=== PATIENT | female | born 1970 | race Caucasian/White ===

== ENCOUNTER 2024-03-20 17:23 | Emergency (ER) | payer OTHER, SELFPAY ==
[2024-03-20] VITALS (12 sets, daily range): BP systolic 136–155; BP diastolic 73–82; PULSE 99–113; RESP 16–20; TEMP 36.9; O2SAT 94–97; BMI 28.9
--- NOTE | 2024-03-20 18:55 | ED_ITS ---
HPI - Abdominal Pain General Time Seen by Provider: 18:55 Date Seen: 03/20/24 Chief Complaint: Abdominal Pain Stated Complaint: Lower R abdominal pain Time Seen by Provider: 03/20/24 18:54 Source: patient, RN notes reviewed and japanese interpreter Mode of arrival: ambulatory Limitations: no limitations History of Present Illness HPI narrative: This 54-year-old female is seen with the aid of the japanese interpreter but she answers many of the questions with out the japanese interpreter, do believe the japanese interpreter is necessary as there are times when she does need the clarification. This patient is coming in with severe right lower quadrant pain today. She states it has been intermittent for about 2 months. She states she currently has her menstrual cycle, is bleeding a little bit. She denies any history of abdominal surgeries. She is requesting pain medicine right away, states it is painful. She had a normal bowel movement yesterday, denies any ch kirsty in bowel habits such as blood in stool or diarrhea. She told nursing staff that she has maybe had some urinary frequency but denied any major urinary issues to me. There is no family history of kidney stones but there has been relatives with gallbladder surgery for gallstones. She has had no fevers with this. There was never any nausea with it. She has never been , tells me that she still having regular menstrual cycles. Due to the pain right now there is some slight nausea but baseline she denies any chronic nausea, no change in appetite. Related Data Previous Rx's ?Medication ?Instructions ?Recorded hydrocodone 5 mg-acetaminophen 325 1 tab PO Q4-6H PRN pain #10 tabs 03/20/24 mg tablet Allergies Allergy/AdvReac Type Severity Reaction Status Date / Time No Known Drug Allergies Allergy Verified 03/21/24 15:14 Review of Systems Status of ROS Reports: 6 or more systems reviewed and unremarkable except as noted in History and below Exam Const: Vital Signs, click to edit/add: Vital Signs - 24 hr 03/20/24 18:17 03/20/24 20:27 03/20/24 20:30 Temperature 98.4 F Pulse Rate 110 H 113 H Pulse Rate [Pulse Oximeter] 99 Respiratory Rate 20 Blood Pressure Blood Pressure [Ri ght Upper Arm] 155/82 H Pulse Oximetry 97 97 97 Oxygen Delivery Me thod Room Air 03/20/24 20:45 03/20/24 20:55 03/20/24 21:00 Temperature Pulse Rate 107 H 108 H 106 H Pulse Rate [Pulse Oximeter] Respiratory Rate Blood Pressure 141/76 H Blood Pressure [Ri ght Upper Arm] Pulse Oximetry 97 96 94 Oxygen Delivery Me thod 03/20/24 21:01 03/20/24 21:02 03/20/24 22:15 Temperature Pulse Rate 107 H 108 H 110 H Pulse Rate [Pulse Oximeter] Respiratory Rate Blood Pressure 136/73 139/73 Blood Pressure [Ri ght Upper Arm] Pulse Oximetry 96 97 96 Oxygen Delivery Me thod 03/20/24 22:16 03/20/24 22:30 03/20/24 22:45 Temperature Pulse Rate 108 H 108 H 108 H Pulse Rate [Pulse Oximeter] Respiratory Rate 16 Blood Pressure Blood Pressure [Ri ght Upper Arm] Pulse Oximetry 97 96 96 Oxygen Delivery Me thod This 54-year-old female is alert, interactive, no apparent distress but does seem uncomfortable. Is hanging onto her right lower quadrant. Sclera clear, conjugate gaze, speech is normal. Lungs are clear, good air entry, no wheezing or crackles. CV regular rate and rhythm, no murmur, normal S1-S2, no S3-S4. Abdomen is soft nondistended she has very definite right lower quadrant tenderness and I do feel like there is a palpable mass there, she does have guarding does seem to to be very tender but would not say there is rebound. Documenting provider has reviewed patient's vital signs: yes Course Course ED Course: Reviewed with this patient that she will get an IV, have already told the nursing staff that she is having significant pain. There could be an ovarian mass causing ovarian torsion, she does not think that there is any chance for and will confirm negative test. Doubtful that this is urinary pathology but kidney stones could be possibility, will get full complement of labs including urinalysis. I am starting with a pelvic ultrasound as I am concerned at her age that this could be pelvic pathology. Reevaluation(s) Time of Reevaluation #1: 19:57 Reevaluation #1: Have reviewed that her white count is normal hemoglobin is low at 5.5 but her MCV is quite low at 66. This could be a hemoglobinopathy or more chronic iron deficiency. Have ordered a peripheral smear, ferritin, iron, her tick count and TIBC. Also asked lab to do a type and screen. The loan auditor did call over and states that patient is passing lot of clots, uterus appears abnormal, probable uterine mass, needs to evaluate ovarian areas closer. Time of Reevaluation #2: 22:52 Reevaluation #2: Patient is feeling much better, pain is improved. We discussed 1 subsequent dose of 15 mg IV Toradol prior to pulling her IV and discharged home. With her pain being significantly improved, do not think I have clinical indication to send her to an advance facility for inpatient workup. She has had no further bleeding, has not had to change any subsequent pads will being here and does contend that her bleeding has not been significantly [facility] Her ferritin came back at 4.7 and her iron is low at 23, this certainly is iron deficiency anemia and with her MCV being 66 likely represents some chronicity to this. We have reviewed that there appears to be a mass in the right ovary visualized on the ultrasound, ultrasound is better for visualizing pelvic structures. There is also a mass from the right anterior uterus which could be fibroid versus malignancy. We did discuss that she needs further follow-up with Gyne Oncology as my recommendation. She really is not symptomatic from anemic standpoint. Will recommend outpatient follow-up and having her scheduled for IV iron transfusion. She plans on follow-up with [facility]. Consultations Consultation #1: Conferred with Dr. Lopes. We did order TXA 1 g IV given her blood clots and bleeding during ultrasound. On further questioning when she was back from ultrasound, patient states she did just change her pad but there is only 1 small spot on her current pad. She relays that she had a lengthy. For 2 months but not heavy. She does not endorse heavy bleeding prior to now. She does not have ongoing bleeding at this moment. Type and screen was ordered but we are going to hold on any transfusion, do think she likely has chronic anemia and will watch for active ongoing bleeding. Her pain is maybe just a little better at this time. I still do have concern with her clinical examination of intermittent torsion and have reviewed this with Dr. Lopes. This patient would certainly not be within this scope of our expertise cm and certainly would be indicated to go to advanced facility where Gyne Onc can perhaps see her. We are going to do a CT of her abdomen and pelvis just to ensure that there is no other etiology, we are not missing anything else but really do doubt that there is appendicitis. Did do tumor markers for ovarian cancer as directed by Dr. Lopes. Time: 20:29 Vital Signs Vital signs: Initial Vital Signs Temperature 98.4 F 03/20/24 18:17 Temperature Source Temporal Artery Scan 03/20/24 18:17 Pulse Rate 99 03/20/24 18:17 Respiratory Rate 20 03/20/24 18:17 Blood Pressure 155/82 H 03/20/24 18:17 Blood Pressure Mean 106 H 03/20/24 18:17 Blood Pressure Position Sitting 03/20/24 18:17 Pulse Oximetry 97 03/20/24 18:17 Oxygen Delivery Method Room Air 03/20/24 18:17 Vital Signs Temperature 98.4 F 03/20/24 18:17 Pulse Rate 99 03/20/24 18:17 Respiratory Rate 20 03/20/24 18:17 Blood Pressure 155/82 H 03/20/24 18:17 Pulse Oximetry 97 03/20/24 18:17 Oxygen Delivery Method Room Air 03/20/24 18:17 Temperature 98.4 F 03/20/24 18:17 Pulse Rate 108 H 03/20/24 22:45 Respiratory Rate 16 03/20/24 22:16 Blood Pressure 139/73 03/20/24 22:15 Pulse Oximetry 96 03/20/24 22:45 Oxygen Delivery Method Room Air 03/20/24 18:17 Medications Administered Medications: Discontinued Medications Generic Name Dose Route Start Last Admin Trade Name Freq PRN Reason Stop Dose Admin Tranexamic Acid 1,000 mg/ 110 mls @ 440 mls/hr 03/20/24 20:16 03/20/24 20:53 Sodium Chloride IVPB 03/20/24 20:17 Infused ONCE ONE Infusion Ketorolac Tromethamine 15 mg 03/20/24 22:52 03/20/24 22:58 Ketorolac 15 Mg/Ml Inj IVP 03/20/24 22:53 15 mg ONCE ONE Administration Morphine Sulfate 4 mg 03/20/24 19:06 03/20/24 19:33 Morphine 4 Mg/Ml Inj IVP 03/20/24 19:07 4 mg ONCE ONE Administration Ondansetron HCl 4 mg 03/20/24 19:06 03/20/24 19:30 Ondansetron 2 Mg/Ml Inj IVP 03/20/24 19:07 4 mg ONCE ONE Administration MDM - Abdominal Pain Lab Data Attestation: I reviewed the patient's lab results. Labs: Lab Results 03/20/24 03/20/24 03/20/24 Range/Units 19:15 19:51 20:08 WBC 5.14 (4.50-11.00) K/uL RBC 3.09 L (4.00-5.20) m/uL Hgb 5.5 L* (12.0-16.0) gm/dL Hct 20.4 L (33.0-51.0) % MCV 66 L (80-100) fL MCH 18 L (26-34) pg MCHC 27 L (32-36) gm/dL RDW Coeff of Mando 18.5 H (11.5-15.5) % Plt Count 243 (140-440) K/uL Neut % (Auto) 71.6 (42.0-72.0) % Lymph % (Auto) 17.7 L (20-44) % [place] % (Auto) 9.9 (0.0-11.0) % Eos % (Auto) 0.2 (0.0-7.0) % Baso % (Auto) 0.4 (0.0-3.0) % Neut # (Auto) 3.68 (1.7-7.0) K/uL Lymph # (Auto) 0.90 (0.90-2.90) K/uL [place] # (Auto) 0.50 (0.00-0.90) K/UL Eos # (Auto) 0.01 (0.00-0.50) K/uL Baso # (Auto) 0.02 (0.00-0.30) K/uL Abs Immat Gran (auto) 0.01 (0.00-0.30) K/uL Imm/Tot Granulo (auto) 0.2 % Diff Slide Review Acceptable Review (Acceptable) Absolute Retic 0.08 (0.03-0.08) # Percent Retic 2.8 H (0.5-2.0) % Immature Retic Fraction 18.7 H (3.0-15.9) % Retic Hgb Equivalent 11.9 L (29.0-35.0) pg Sodium 137 (135-149) mmol/L Potassium 3.8 (3.6-5.1) mmol/L Chloride 104 (96-114) mmol/L Carbon Dioxide 24 (20-32) mmol/L Anion Gap 9 (7-15) mEq/L BUN 18 (7-30) mg/dL Creatinine 0.6 (0.5-1.5) mg/dL Estimated Creat Clear 110.64 Estimated GFR 108 ml/min Glucose 123 H (60-115) mg/dL Lactate 0.6 (0.5-1.9) mmol/L Calcium 9.0 (8.4-10.6) mg/dL Iron 23 L (37-170) ug/dL TIBC 436 (265-497) ug/dL % Saturation 5 L (20-50) % Ferritin 4.7 L (11.1-264.0) ng/mL Total Bilirubin 0.5 (0.1-1.5) mg/dL AST 15 (12-35) U/L ALT 10 (4-35) U/L Alkaline Phosphatase 69 (40-150) U/L C-Reactive Protein 5.9 H (0.5-1.0) mg/dL Total Protein 8.1 (6.0-8.3) g/dL Albumin 4.4 (3.3-5.0) g/dL CEA (off-site) <0.6 (<=3.8) ng/mL CA 19-9 Antigen 9 (<=35) U/mL CA 125 (LORRI) 39 H (<=38) U/mL HCG, Qual (Negative) Urine Color (Yellow) Urine Appearance (Clear) Urine pH (5.0-8.5) Ur Specific [place] (1.000-1.030) Urine Protein (Negative) Urine Glucose (UA) (Negative) Urine Ketones (Negative) Urine Blood (Negative) Urine Nitrite (Negative) Urine Bilirubin (Negative) Urine Urobilinogen (0.2-1.0) Ur Leukocyte Esterase (Negative) Urine RBC (0-2) Urine WBC (0-5) Ur Squamous Epith Cells (None-Few) Urine Bacteria (None) Urine HCG, Qual (Negative) Lab Acknowledgement Test Added Blood Type A Positive Antibody Screen NEGATIVE Crossmatch (AHG) See Detail 10/10/24 10/10/24 10/10/24 Range/Units 20:28 21:20 Unknown WBC (4.50-11.00) K/uL RBC (4.00-5.20) m/uL Hgb (12.0-16.0) gm/dL Hct (33.0-51.0) % MCV (80-100) fL MCH (26-34) pg MCHC (32-36) gm/dL RDW Coeff of Mando (11.5-15.5) % Plt Count (140-440) K/uL Neut % (Auto) (42.0-72.0) % Lymph % (Auto) (20-44) % [place] % (Auto) (0.0-11.0) % Eos % (Auto) (0.0-7.0) % Baso % (Auto) (0.0-3.0) % Neut # (Auto) (1.7-7.0) K/uL Lymph # (Auto) (0.90-2.90) K/uL [place] # (Auto) (0.00-0.90) K/UL Eos # (Auto) (0.00-0.50) K/uL Baso # (Auto) (0.00-0.30) K/uL Abs Immat Gran (auto) (0.00-0.30) K/uL Imm/Tot Granulo (auto) % Diff Slide Review (Acceptable) Absolute Retic (0.03-0.08) # Percent Retic (0.5-2.0) % Immature Retic Fraction (3.0-15.9) % Retic Hgb Equivalent (29.0-35.0) pg Sodium (135-149) mmol/L Potassium (3.6-5.1) mmol/L Chloride (96-114) mmol/L Carbon Dioxide (20-32) mmol/L Anion Gap (7-15) mEq/L BUN (7-30) mg/dL Creatinine (0.5-1.5) mg/dL Estimated Creat Clear Estimated GFR ml/min Glucose (60-115) mg/dL Lactate (0.5-1.9) mmol/L Calcium (8.4-10.6) mg/dL Iron (37-170) ug/dL TIBC (265-497) ug/dL % Saturation (20-50) % Ferritin (11.1-264.0) ng/mL Total Bilirubin (0.1-1.5) mg/dL AST (12-35) U/L ALT (4-35) U/L Alkaline Phosphatase (40-150) U/L C-Reactive Protein (0.5-1.0) mg/dL Total Protein (6.0-8.3) g/dL Albumin (3.3-5.0) g/dL CEA (off-site) (<=3.8) ng/mL CA 19-9 Antigen (<=35) U/mL CA 125 (LORRI) (<=38) U/mL HCG, Qual Negative (Negative) Urine Color Yellow (Yellow) Urine Appearance Clear (Clear) Urine pH 6.0 (5.0-8.5) Ur Specific [place] 1.020 (1.000-1.030) Urine Protein 1+ A (Negative) Urine Glucose (UA) Negative (Negative) Urine Ketones 1+ A (Negative) Urine Blood 3+ A (Negative) Urine Nitrite Negative (Negative) Urine Bilirubin Negative (Negative) Urine Urobilinogen 1.0 (0.2-1.0) Ur Leukocyte Esterase Negative (Negative) Urine RBC 10-25 A (0-2) Urine WBC 2-5 (0-5) Ur Squamous Epith Cells None (None-Few) Urine Bacteria Few A (None) Urine HCG, Qual Negative (Negative) Lab Acknowledgement Test Added Blood Type Antibody Screen Crossmatch (AHG) Imaging Data US pelvis: Attestation: I have reviewed the pertinent imaging results. My impression: Did visualize images with Dr. Lopes. Radiologist's impression: Patient: TU MARTINEZ Facility:?[facility] Patient ID:?[id number] Site Patient ID:?[id number]. Site :?[id number] Study:?US-Pelvis -03/20/2024 8:12:34 PM Ordering Physician:?Sharad Cohen Final Report: Indication: Severe right lower quadrant pain, bleeding Technique: Transabdominal and transvaginal pelvic ultrasound. Grayscale and color Doppler imaging utilized. Comparison: None Findings: Uterus: 17.6 x 11.1 x 13.6. There is a 10 x 8.2 x 7.4 centimeter mass present. Endometrium: Can not be distinguished. Question internal blood products or mass. Right ovary: 5.2 x 3.1 x 4.6 centimeters. There is a 3.6 centimeter heterogeneous solid-appearing mass lesion. Arterial and venous waveforms detected. Left ovary: Not visualized. The left adnexa demonstrates a dilated fallopian tube with wall thickening and hyperemia. Other: No free fluid. Impression: 1. Enlarged uterus with a probable mass measuring up to 10 centimeters. Most suspicious etiology would be a large fibroid, although no prior examination is available for comparison. This could be evaluated by nonemergent contrast- enhanced MRI of the pelvis. 2. There is a mass in the right ovary measuring 3.6 centimeters. This could also be evaluated by nonemergent contrast-enhanced MRI of the pelvis. 3. The left ovary is not visualized. The left adnexa demonstrates a probable dilated fallopian tube with wall thickening and hyperemia, can not exclude infection/inflammation. 4. The endometrium is not distinguished from adjacent tissues, question if there are blood products or if there is a heterogeneous mass lesion within the endometrium. Dictated by Sharad Arriaga MD @ 03/20/2024 8:38:41 PM (Electronic Signature) CT scan - abdomen: Attestation: I have reviewed the pertinent imaging results. Radiologist's impression: Patient: TU MARTINEZ Facility:?[facility] Patient ID:?[id number] Site Patient ID:?[id number]. Site :?[id number] Study:?CT-Abdomen/Pelvis W ISOVUE 370-03/20/2024 9:23:35 PM Ordering Physician:Avery Cohen Final Report: INDICATION: Abdominal pain, pelvic pathology. TECHNIQUE: CT of the abdomen and pelvis acquired with 93 cc Isovue 370 IV contrast. Coronal and sagittal reconstructions. COMPARISON: Same day pelvic ultrasound. FINDINGS: Lower chest: 2 mm noncalcified pulmonary nodule along the left major fissure (series 3, image 26). The lung bases are otherwise clear. Liver: Normal in size and attenuation. Few hepatic cysts measuring up to 2.8 cm. Additional subcentimeter hepatic hypodensities which are too small to characterize. Gallbladder and bile ducts: Unremarkable. No biliary dilation. Spleen: Unremarkable. Pancreas: Unremarkable. Adrenal glands: Unremarkable. Kidneys, Ureters, and Bladder: Symmetric enhancement. No hydronephrosis or obstructing urinary calculi. No bladder wall thickening. Reproductive organs: The uterus is enlarged with distended endometrial canal containing mixed density fluid which may represent blood products. There is a 8.2 x 7.6 x 8.0 cm heterogeneous enhancing mass arising from the right anterior uterus protruding into the endometrial canal (series 2, image 120). Probable small calcified fibroid in the lower uterine segment. Small follicles in the right ovary. Fluid-filled tubular structure in the left adnexa could represent hydrosalpinx. GI tract/Peritoneum: No small bowel dilation. Moderate amount of stool throughout the colon. The appendix is not identified. No intraperitoneal free air or fluid. Vasculature: Abdominal aorta is normal in caliber. Mesenteric arteries appear patent. Lymph nodes: No lymphadenopathy. Abdominal Wall: Small fat containing umbilical hernia. Bones: Small sclerotic lesions in the L2 and L3 vertebral bodies. IMPRESSION: 1. Enlarged uterus with distended endometrial canal containing mixed density fluid which may represent blood products. 2. Large heterogeneous enhancing mass arising from the right anterior uterus protruding into the endometrial canal. Differential considerations include subendometrial fibroid versus malignancy. Gynecologic consult is recommended. 3. Fluid-filled tubular structure in the left adnexa may represent hydrosalpinx. Please note that all CT scans at this facility use dose modulation, iterative reconstruction, and/or weight-based dosing when appropriate to reduce radiation dose to as low as reasonably achievable. Dictated by Gabriela Light MD @ 03/20/2024 10:17:42 PM (Electronic Signature) Discharge Plan Discharge Clinical Impression: Mass of uterus, Mass of right ovary Iron deficiency anemia Qualifiers: Iron deficiency anemia type: chronic blood loss Qualified Code(s): D50.0 - Iron deficiency anemia secondary to blood loss (chronic) Patient Disposition: Home, Self-Care Condition: Stable Instructions: Anemia (ED) Additional Instructions: Need to follow up in clinic as soon as possible, preferably within the next few clinic days. You should be considered for IV iron transfusion, this is an outpatient procedure and has not done through the ER. You also need to be scheduled to see a infection prevention practitioner oncologist specialist, this can be done via referral p nathalie through your clinic. I have written for some pain medication to be used with recurrent pain. If you develop severe unrelenting abdominal pain, do develop significant vaginal bleeding where you are bleeding through a heavy pad hourly for more than 2 hours, do need to be re-evaluated. Please take your imaging reports to your follow-up appointment. The pain medication has a narcotic in it, do not operate machinery or drive while on this. Activity Level: Activity as Tolerated Prescriptions: New hydrocodone-acetaminophen 5-325 mg tablet 1 tab PO Q4-6H PRN (Reason: pain) Qty: 10 0RF Follow Up/Referrals: Provider,Not a Local [Primary Care Provider] - Stand Alone Forms: Q Chip Info Instructions
--- NOTE | 2024-03-20 19:04 | CRLHL7_ITS ---
For Patients: As a result of the Century Cures Act, medical imaging exams and procedure reports are released immediately into your electronic medical record. You may view this report before your referring provider. If you have questions, please contact your health care provider. Indication: Severe right lower quadrant pain, bleeding Technique: Transabdominal and transvaginal pelvic ultrasound. Grayscale and color Doppler imaging utilized. Comparison: None Findings: Uterus: 17.6 x 11.1 x 13.6. There is a 10 x 8.2 x 7.4 centimeter mass present. Endometrium: Can not be distinguished. Question internal blood products or mass. Right ovary: 5.2 x 3.1 x 4.6 centimeters. There is a 3.6 centimeter heterogeneous solid-appearing mass lesion. Arterial and venous waveforms detected. Left ovary: Not visualized. The left adnexa demonstrates a dilated fallopian tube with wall thickening and hyperemia. Other: No free fluid. Impression: 1. Enlarged uterus with a probable mass measuring up to 10 centimeters. Most suspicious etiology would be a large fibroid, although no prior examination is available for comparison. This could be evaluated by nonemergent contrast-enhanced MRI of the pelvis. 2. There is a mass in the right ovary measuring 3.6 centimeters. This could also be evaluated by nonemergent contrast-enhanced MRI of the pelvis. 3. The left ovary is not visualized. The left adnexa demonstrates a probable dilated fallopian tube with wall thickening and hyperemia, can not exclude infection/inflammation. 4. The endometrium is not distinguished from adjacent tissues, question if there are blood products or if there is a heterogeneous mass lesion within the endometrium. Dictated by Sharad Arriaga MD @ 03/20/2024 8:38:41 PM (Electronically Signed)
[2024-03-20 19:24] LABS: Lactate* 0.6 mmol/L (0.5-1.9)
[2024-03-20 19:25] LABS: Basophils Absolute Auto 0.02 K/uL (0.00-0.30); Basophils Percent Auto 0.4 % (0.0-3.0); Eosinophils Absolute Auto 0.01 K/uL (0.00-0.50); Eosinophils Percent Auto 0.2 % (0.0-7.0); Hematocrit 20.4 % (33.0-51.0); Immature Granulocytes Abs Auto 0.01 K/uL (0.00-0.30); Immature Granulocytes Pct Auto 0.2 %; Lymphocytes Percent Auto 17.7 % (20-44); Mean Corpuscular HGB Conc 27 gm/dL (32-36); Mean Corpuscular Hemoglobin 18 pg (26-34); Mean Corpuscular Volume 66 fL (80-100); Monocytes Percent Auto 9.9 % (0.0-11.0); Neutrophils Absolute Auto 3.68 K/uL (1.7-7.0); Neutrophils Percent Auto 71.6 % (42.0-72.0); Platelet Count* 243 K/uL (140-440); RDW Coefficient of Variation % 18.5 % (11.5-15.5); Red Blood Count 3.09 m/uL (4.00-5.20); White Blood Count* 5.14 K/uL (4.50-11.00)
[2024-03-20] MEDS: ONDANSETRON 2 MG/ML inj 4 MG IVP (19:30)
[2024-03-20 19:31] LABS: Slide Review Reflex Yes
[2024-03-20 19:33] LABS: Hemoglobin* 5.5 gm/dL (12.0-16.0)
[2024-03-20] MEDS: MORPHINE 4 MG/ML INJ IVP (19:33)
[2024-03-20 19:53] LABS: Albumin* 4.4 g/dL (3.3-5.0); Chloride* 104 mmol/L (96-114)
[2024-03-20 19:54] LABS: Potassium* 3.8 mmol/L (3.6-5.1); Sodium* 137 mmol/L (135-149)
[2024-03-20 19:56] LABS: Alkaline Phosphatase* 69 U/L (40-150); Anion Gap 9 mEq/L (7-15); Aspartate Amino Transferase* 15 U/L (12-35); Bilirubin Total* 0.5 mg/dL (0.1-1.5); Carbon Dioxide* 24 mmol/L (20-32); Creatinine* 0.6 mg/dL (0.5-1.5); Est. Creatinine Clearance* 110.64; Estimated Glomerular Filt Rate 108 ml/min; Total Protein* 8.1 g/dL (6.0-8.3)
[2024-03-20 19:57] LABS: Alanine Aminotransferase* 10 U/L (4-35); Blood Urea Nitrogen* 18 mg/dL (7-30); Glucose* 123 mg/dL (60-115)
[2024-03-20 19:59] LABS: C Reactive Protein* 5.9 mg/dL (0.5-1.0)
[2024-03-20 20:29] LABS: Immature Reticulocyte Fraction 18.7 % (3.0-15.9); Reticulocyte Hemoglobin Equivi 11.9 pg (29.0-35.0); Reticulocyte Percent 2.8 % (0.5-2.0); Reticulocytes Absolute 0.08 # (0.03-0.08)
--- NOTE | 2024-03-20 20:29 | CRLHL7_ITS ---
For Patients: As a result of the 21st Century Cures Act, medical imaging exams and procedure reports are released immediately into your electronic medical record. You may view this report before your referring provider. If you have questions, please contact your health care provider. INDICATION: Abdominal pain, pelvic pathology. TECHNIQUE: CT of the abdomen and pelvis acquired with 93 cc Isovue 370 IV contrast. Coronal and sagittal reconstructions. COMPARISON: Same day pelvic ultrasound. FINDINGS: Lower chest: 2 mm noncalcified pulmonary nodule along the left major fissure (series 3, image 26). The lung bases are otherwise clear. Liver: Normal in size and attenuation. Few hepatic cysts measuring up to 2.8 cm. Additional subcentimeter hepatic hypodensities which are too small to characterize. Gallbladder and bile ducts: Unremarkable. No biliary dilation. Spleen: Unremarkable. Pancreas: Unremarkable. Adrenal glands: Unremarkable. Kidneys, Ureters, and Bladder: Symmetric enhancement. No hydronephrosis or obstructing urinary calculi. No bladder wall thickening. Reproductive organs: The uterus is enlarged with distended endometrial canal containing mixed density fluid which may represent blood products. There is a 8.2 x 7.6 x 8.0 cm heterogeneous enhancing mass arising from the right anterior uterus protruding into the endometrial canal (series 2, image 120). Probable small calcified fibroid in the lower uterine segment. Small follicles in the right ovary. Fluid-filled tubular structure in the left adnexa could represent hydrosalpinx. GI tract/Peritoneum: No small bowel dilation. Moderate amount of stool throughout the colon. The appendix is not identified. No intraperitoneal free air or fluid. Vasculature: Abdominal aorta is normal in caliber. Mesenteric arteries appear patent. Lymph nodes: No lymphadenopathy. Abdominal Wall: Small fat containing umbilical hernia. Bones: Small sclerotic lesions in the L2 and L3 vertebral bodies. IMPRESSION: 1. Enlarged uterus with distended endometrial canal containing mixed density fluid which may represent blood products. 2. Large heterogeneous enhancing mass arising from the right anterior uterus protruding into the endometrial canal. Differential considerations include subendometrial fibroid versus malignancy. Gynecologic consult is recommended. 3. Fluid-filled tubular structure in the left adnexa may represent hydrosalpinx. Please note that all CT scans at this facility use dose modulation, iterative reconstruction, and/or weight-based dosing when appropriate to reduce radiation dose to as low as reasonably achievable. Dictated by Gabriela Light MD @ 03/20/2024 10:17:42 PM (Electronically Signed)
[2024-03-20] MEDS: TRANEXAMIC ACID 1,000 MG in 0.9 % SODIUM CHLORIDE 100 ml 100 ML 440 MG IVPB (20:33)
[2024-03-20 20:40] LABS: Slide Review Acceptable Review (Acceptable)
[2024-03-20 21:17] LABS: Iron* 23 ug/dL (37-170)
[2024-03-20 21:26] LABS: Percent Iron Saturation 5 % (20-50); Total Iron Binding Capacity 436 ug/dL (265-497)
[2024-03-20 21:28] LABS: HCG Qualitative Serum* Negative (Negative)
[2024-03-20 21:37] LABS: Appearance Urine Clear (Clear); Bilirubin Urine Negative (Negative); Blood Urine 3+ (Negative); Color Urine Yellow (Yellow); Glucose Urine Negative (Negative); Ketones Urine 1+ (Negative); Leukocyte Esterase Urine Negative (Negative); Nitrite Urine Negative (Negative); Protein Urine 1+ (Negative)
[2024-03-20 21:43] LABS: Ferritin* 4.7 ng/mL (11.1-264.0)
[2024-03-20 21:51] LABS: Bacteria Urine Few
[2024-03-20 22:12] LABS: Ur HCG Qualitative* Negative (Negative)
[2024-03-20] MEDS: KETOROLAC 15 MG/ML inj IVP (22:58)
[2024-03-22 22:47] LABS: Cancer Antigen 125 39 U/mL (<=38); Cancer Antigen-GI (CA 19-9) 9 U/mL (<=35); Carcinoembryonic Antigen <0.6 ng/mL (<=3.8)
== END 2024-03-20 23:17 | disposition home or self-care (01) ==
PROVIDERS: Emergency Provider Family Medicine
DX: N85.8 Other specified noninflammatory disorders of uterus (principal); N83.8 Other noninflammatory disorders of ovary, fallopian tube and broad ligament; D50.0 Iron deficiency anemia secondary to blood loss (chronic)
CPT/HCPCS: 36415; 74177; 76830; 76856; 80053; 81001; 81025; 82378; 82728; 83540; 83550; 83605; 84703; 85025; 85045; 86140; 86301; 86304; 86850; 86900; 86901; 86922; 87086; 93976; 94761; 96365; 96375; 99281; 99284; 99285; J1885; J2270; J2405; Q9967

== ENCOUNTER 2024-03-21 14:51 | Emergency (ER) | payer OTHER, SELFPAY ==
[2024-03-21 15:10] VITALS: BP 135/75; PULSE 96; RESP 16; TEMP 36.1; O2SAT 98; BMI 28.7
--- NOTE | 2024-03-21 15:51 | ED.FEMALEGU ---
HPI - Female Genitourinary General Time Seen by Provider: 15:51 Date Seen: 03/21/24 Chief complaint: Vaginal Bleeding Stated complaint: Lower R abdominal pain Time Seen by Provider: 03/21/24 15:21 Source: patient Mode of arrival: ambulatory Limitations: no limitations History of Present Illness HPI Narrative: Laura is a very pleasant 54-year-old female seen last evening for right lower quadrant pain and vaginal bleeding who comes to the emergency room for evaluation regarding vaginal bleeding that has continued. Laura notes that she still gets periods. She has had light vaginal bleeding over the last 2 months with increased bleeding suddenly yesterday. She was seen in the emergency room at which time she was treated with Toradol for abdominal pain, discover that she had hemoglobin of 5.5 and treated with TXA. She was discharged home with Lamar for pain. She was supposed to follow-up with her primary MD in order to have iron infusions as well as see OBGYN specialty for possible malignancy. She states that she slept well last night but this morning she is bleeding once again. She states that she is soaking a pad every 1/2 hour. She denies headache, lightheadedness, dizziness, chest pain, shortness of breath, fainting. She states that she is very worried about the bleeding because she was told last night that she does not have very much blood left. Laura denies fever, cough, lower extremity edema. She has some right lower quadrant pain today but it is not as bad as last night. Last evening she underwent ultrasound an abdominal CT. Related Data Previous Rx's ?Medication ?Instructions ?Recorded hydrocodone 5 mg-acetaminophen 325 1 tab PO Q4-6H PRN pain #10 tabs 03/20/24 mg tablet Allergies Allergy/AdvReac Type Severity Reaction Status Date / Time No Known Drug Allergies Allergy Verified 03/21/24 15:14 Review of Systems Status of ROS: Reports: 10 or more systems reviewed and unremarkable except as noted in History and below Const: Denies: fever, chills or fatigue Eyes: Denies: change in vision ENMT: Denies: neck pain or nasal congestion Cardio: Denies: chest pain, palpitations, edema, swelling of feet/ankles, lightheadedness or shortness of breath with exertion Resp: Denies: shortness of breath or cough GI: Reports: abdominal pain; Denies: nausea, vomiting or diarrhea : Denies: painful urination Musculo: Denies: back pain or neck pain Endo: Denies: fatigue Exam Narrative: Exam Narrative: Alert and oriented. Pale in appearance but no acute distress. Moving onto the bed in throughout the room with no difficulty. EOM is full. Heart with regular rate and rhythm. Lungs are clear bilaterally. Abdomen is soft. Patient cautions me when palpating pelvis as she states that she does not want to lose any more blood. No masses are palpated. Examination of her pad shows a modest amount of dark maroon-colored blood. Pad is not soaked. Lower extremities without edema. Const: Vital Signs, click to edit/add: Vital Signs - 24 hr 03/21/24 15:10 03/21/24 17:48 03/21/24 19:33 Temperature 97 F L 97.2 F L Pulse Rate [Pulse Oximeter] 96 92 96 Respiratory Rate 16 16 Blood Pressure [Ri ght Upper Arm] 135/75 146/80 H Pulse Oximetry 98 100 98 Oxygen Delivery Me thod Room Air Room Air Room Air Documenting provider has reviewed patient's vital signs: yes Course Course ED Course: At this time patient returns for ongoing bleeding. Previously had been treated with TXA and was supposed to follow-up for establishment of IV iron infusions as well as OBGYN consultation for possible malignancy. Will recheck CBC and Chem panel at this time. Patient is essentially asymptomatic of her anemia and thus likely reflects continuous bleeding over the past 2 months. I have consulted with our specialist Dr. Williamson. Reevaluation(s) Reevaluation #1: Hemoglobin returns at 5.0, not a significant change since yesterday when it was 5.5. She is not tachycardic. Vital signs are stable at this time. Vital Signs Vital signs: Initial Vital Signs Temperature 97 F L 03/21/24 15:10 Temperature Source Temporal Artery Scan 03/21/24 15:10 Pulse Rate 96 03/21/24 15:10 Pulse Rhythm Regular 03/21/24 15:10 Pulse Strength 3+ Normal 03/21/24 15:10 Respiratory Rate 16 03/21/24 15:10 Blood Pressure 135/75 03/21/24 15:10 Blood Pressure Mean 95 03/21/24 15:10 Blood Pressure Position Sitting 03/21/24 15:10 Pulse Oximetry 98 03/21/24 15:10 Oxygen Delivery Method Room Air 03/21/24 15:10 Vital Signs Temperature 97 F L 03/21/24 15:10 Pulse Rate 96 03/21/24 15:10 Respiratory Rate 16 03/21/24 15:10 Blood Pressure 135/75 03/21/24 15:10 Pulse Oximetry 98 03/21/24 15:10 Oxygen Delivery Method Room Air 03/21/24 15:10 Temperature 97.2 F L 03/21/24 17:48 Pulse Rate 96 03/21/24 19:33 Respiratory Rate 16 03/21/24 17:48 Blood Pressure 146/80 H 03/21/24 17:48 Pulse Oximetry 98 03/21/24 19:33 Oxygen Delivery Method Room Air 03/21/24 19:33 Medications Administered Medications: Discontinued Medications Generic Name Dose Route Start Last Admin Trade Name Freq PRN Reason Stop Dose Admin Morphine Sulfate 4 mg 03/21/24 18:36 03/21/24 18:45 Morphine 4 Mg/Ml Inj IVP 03/21/24 18:37 4 mg ONCE ONE Administration Ondansetron HCl 4 mg 03/21/24 18:36 03/21/24 18:45 Ondansetron 2 Mg/Ml Inj IVP 03/21/24 18:37 4 mg ONCE ONE Administration MDM - Female Genitourinary MDM Narrative Medical decision making narrative: 1. Uterine and right ovarian masses-ultrasound and CT confirm what appears to be endometrial mass. Also noted a 3.6 mass in the right ovary as well as left hydro salpinx. Given ongoing vaginal bleeding, significant anemia I did speak with our homeland security program specialist Dr. Williamson who does suggests transfer to outside facility for subspecialty care. We were successfully able to transfer to [facility] under the care of . 2. Vaginal bleeding -continued vaginal bleeding. Patient has had 2 months of ongoing light bleeding and then worsening yesterday now stating that she is soaking a pad every 1/2 hour. Note no pad changes needed during her time here but pad does have moderate amount of blood in it. Hemodynamically stable at this time. 3. Anemia-hemoglobin 5.0. Last evening 5.5. 4. Right lower quadrant pain-pain noted last night and CT did not show any evidence of appendicitis. Now a known 3.6 cm mass in the right ovary. Patient's pain has been controlled fairly well with Lamar at home. Patient now traveling to [place] for subspecialty care. Instead of having her take p.o. Lamar I would like to keep her NPO. Will give her 4 mg of IV morphine and 4 mg of IV Zofran. 5. Disposition-patient has been accepted by [facility] in [place]. Patient will be going to the [facility]. At this time do suggest ambulance transfer but they are electing to go by car. Risks of transfer of by car instead of ambulance discussed including MVA, worsening bleeding. I did advise that if patient suddenly becomes much worse to called 911 and route to [facility]. Medical Records Attestation: I reviewed the patient's medical records. Lab Data Attestation: I reviewed the patient's lab results. Labs: Lab Results 03/21/24 Range/Units 16:05 WBC 5.09 (4.50-11.00) K/uL RBC 2.81 L (4.00-5.20) m/uL Hgb 5.0 L* (12.0-16.0) gm/dL Hct 18.9 L (33.0-51.0) % MCV 67 L (80-100) fL MCH 18 L (26-34) pg MCHC 27 L (32-36) gm/dL RDW Coeff of Mando 18.8 H (11.5-15.5) % Plt Count 225 (140-440) K/uL Neut % (Auto) 77.5 H (42.0-72.0) % Lymph % (Auto) 13.2 L (20-44) % [place] % (Auto) 8.1 (0.0-11.0) % Eos % (Auto) 0.4 (0.0-7.0) % Baso % (Auto) 0.6 (0.0-3.0) % Neut # (Auto) 3.90 (1.7-7.0) K/uL Lymph # (Auto) 0.70 L (0.90-2.90) K/uL [place] # (Auto) 0.40 (0.00-0.90) K/UL Eos # (Auto) 0.02 (0.00-0.50) K/uL Baso # (Auto) 0.03 (0.00-0.30) K/uL Abs Immat Gran (auto) 0.01 (0.00-0.30) K/uL Imm/Tot Granulo (auto) 0.2 % Sodium 136 (135-149) mmol/L Potassium 3.7 (3.6-5.1) mmol/L Chloride 101 (96-114) mmol/L Carbon Dioxide 26 (20-32) mmol/L Anion Gap 9 (7-15) mEq/L BUN 17 (7-30) mg/dL Creatinine 0.5 (0.5-1.5) mg/dL Estimated Creat Clear 132.77 Estimated GFR 113 ml/min Glucose 155 H (60-115) mg/dL Calcium 8.6 (8.4-10.6) mg/dL Imaging Data CT scan - abdomen: Attestation: I have reviewed the pertinent imaging results. My impression: CT from previous ED visit on 03/20/2024 Radiologist's impression: Lower chest: 2 mm noncalcified pulmonary nodule along the left major fissure (series 3, image 26). The lung bases are otherwise clear. Liver: Normal in size and attenuation. Few hepatic cysts measuring up to 2.8 cm. Additional subcentimeter hepatic hypodensities which are too small to characterize. Gallbladder and bile ducts: Unremarkable. No biliary dilation. Spleen: Unremarkable. Pancreas: Unremarkable. Adrenal glands: Unremarkable. Kidneys, Ureters, and Bladder: Symmetric enhancement. No hydronephrosis or obstructing urinary calculi. No bladder wall thickening. Reproductive organs: The uterus is enlarged with distended endometrial canal containing mixed density fluid which may represent blood products. There is a 8.2 x 7.6 x 8.0 cm heterogeneous enhancing mass arising from the right anterior uterus protruding into the endometrial canal (series 2, image 120). Probable small calcified fibroid in the lower uterine segment. Small follicles in the right ovary. Fluid-filled tubular structure in the left adnexa could represent hydrosalpinx. GI tract/Peritoneum: No small bowel dilation. Moderate amount of stool throughout the colon. The appendix is not identified. No intraperitoneal free air or fluid. Vasculature: Abdominal aorta is normal in caliber. Mesenteric arteries appear patent. Lymph nodes: No lymphadenopathy. Abdominal Wall: Small fat containing umbilical hernia. Bones: Small sclerotic lesions in the L2 and L3 vertebral bodies. IMPRESSION: 1. Enlarged uterus with distended endometrial canal containing mixed density fluid which may represent blood products. 2. Large heterogeneous enhancing mass arising from the right anterior uterus protruding into the endometrial canal. Differential considerations include subendometrial fibroid versus malignancy. Gynecologic consult is recommended. 3. Fluid-filled tubular structure in the left adnexa may represent hydrosalpinx. US - abdomen: My impression: This ultrasound reviewed from previous ED visit on 03/20/2024 Radiologist's impression: Uterus: 17.6 x 11.1 x 13.6. There is a 10 x 8.2 x 7.4 centimeter mass present. Endometrium: Can not be distinguished. Question internal blood products or mass. Right ovary: 5.2 x 3.1 x 4.6 centimeters. There is a 3.6 centimeter heterogeneous solid-appearing mass lesion. Arterial and venous waveforms detected. Left ovary: Not visualized. The left adnexa demonstrates a dilated fallopian tube with wall thickening and hyperemia. Other: No free fluid. Impression: 1. Enlarged uterus with a probable mass measuring up to 10 centimeters. Most suspicious etiology would be a large fibroid, although no prior examination is available for comparison. This could be evaluated by nonemergent contrast-enhanced MRI of the pelvis. 2. There is a mass in the right ovary measuring 3.6 centimeters. This could also be evaluated by nonemergent contrast-enhanced MRI of the pelvis. 3. The left ovary is not visualized. The left adnexa demonstrates a probable dilated fallopian tube with wall thickening and hyperemia, can not exclude infection/inflammation. 4. The endometrium is not distinguished from adjacent tissues, question if there are blood products or if there is a heterogeneous mass lesion within the endometrium. Discharge Plan Discharge Clinical Impression: Mass of uterus, Mass of right ovary, Vaginal bleeding Iron deficiency anemia Qualifiers: Iron deficiency anemia type: chronic blood loss Qualified Code(s): D50.0 - Iron deficiency anemia secondary to blood loss (chronic) Patient Disposition: [facility] Discharge Location: [facility] Condition: Unchanged Additional Instructions: Proceed directly to [facility] this evening.
[2024-03-21 16:20] LABS: Basophils Absolute Auto 0.03 K/uL (0.00-0.30); Basophils Percent Auto 0.6 % (0.0-3.0); Eosinophils Absolute Auto 0.02 K/uL (0.00-0.50); Eosinophils Percent Auto 0.4 % (0.0-7.0); Hematocrit 18.9 % (33.0-51.0); Immature Granulocytes Abs Auto 0.01 K/uL (0.00-0.30); Immature Granulocytes Pct Auto 0.2 %; Lymphocytes Percent Auto 13.2 % (20-44); Mean Corpuscular HGB Conc 27 gm/dL (32-36); Mean Corpuscular Hemoglobin 18 pg (26-34); Mean Corpuscular Volume 67 fL (80-100); Monocytes Percent Auto 8.1 % (0.0-11.0); Neutrophils Percent Auto 77.5 % (42.0-72.0); Platelet Count* 225 K/uL (140-440); RDW Coefficient of Variation % 18.8 % (11.5-15.5); Red Blood Count 2.81 m/uL (4.00-5.20); White Blood Count* 5.09 K/uL (4.50-11.00)
[2024-03-21 16:24] LABS: Slide Review Reflex No
[2024-03-21 16:33] LABS: Chloride* 101 mmol/L (96-114); Potassium* 3.7 mmol/L (3.6-5.1); Sodium* 136 mmol/L (135-149)
[2024-03-21 16:35] LABS: Creatinine* 0.5 mg/dL (0.5-1.5); Est. Creatinine Clearance* 132.77; Estimated Glomerular Filt Rate 113 ml/min
[2024-03-21 16:36] LABS: Anion Gap 9 mEq/L (7-15); Blood Urea Nitrogen* 17 mg/dL (7-30); Calcium* 8.6 mg/dL (8.4-10.6); Carbon Dioxide* 26 mmol/L (20-32); Glucose* 155 mg/dL (60-115)
[2024-03-21 17:48] VITALS: BP 146/80; PULSE 92; RESP 16; TEMP 36.2; O2SAT 100
[2024-03-21] MEDS: ONDANSETRON 2 MG/ML inj 4 MG IVP (18:45)
[2024-03-21] MEDS: MORPHINE 4 MG/ML INJ IVP (18:45)
[2024-03-21 19:33] VITALS: PULSE 96; O2SAT 98
== END 2024-03-21 19:49 | disposition short-term general hospital (02) ==
PROVIDERS: Emergency Provider Family Medicine
DX: D50.0 Iron deficiency anemia secondary to blood loss (chronic) (principal); N83.8 Other noninflammatory disorders of ovary, fallopian tube and broad ligament; N85.8 Other specified noninflammatory disorders of uterus
CPT/HCPCS: 36415; 80048; 85025; 96374; 96375; 99284; J2270; J2405

== ENCOUNTER 2024-09-22 22:12 | Emergency (ER) | payer OTHER, SELFPAY ==
--- OUTSIDE RECORDS SUMMARY | 2024-09-22 22:14 | XMS_ITS | Clinical Summary ---
Author Organization [facility] Address [address] [place] [id number] Care Team Providers Care Rib Trim Separator Name Role Phone Unavailable Primary Care Provider Unavailabl e Allergies No known active allergies Medications triamcinolone 0.5% (ARISTOCORT) 0.5 % creamIndication s:Rash Apply topically to affected area(s) 3 times daily. 15 g 0 4 Active Active Problems No known active problems Immunizations Immunization Administration Dates Next Due AMB Influenza, IIV3 (Age >=3 years)([facility]) 03/19/2009 Family History Medical History Relation Name Comments Cancer-breast No Family History Social History Tobacco Use Types Packs/Day Years Used Date Smoking Tobacco: Never Tobacco Cessation:Counseling Given: Yes Alcohol Use Standard Drinks/Week Comments No 0 (1 standard drink = 0.6 oz pur e alcohol) Comments No Sex and Gender Information Value Date Recorded Sex Assigned at Not on file Legal Sex Female 5:19 AM [employer] Gender Identity Not on file Sexual Orientation Not on file Obstetrics History Last Filed Vital Signs Vital Sign Reading Time Taken Comments Blood Pressure 117/74 03/26/2015 10:12 AM CDT Pulse 84 03/26/2015 10:12 AM CDT Temperature 37 C (98.6 F) 03/26/2015 10:12 AM CDT Respiratory Rate - - Oxygen Saturation 100% 03/26/2015 10: 12 AM CDT Inhaled Oxygen Concentration - - Weight 83.9 kg (184 lb 14.4 oz) 015 10:12 AM CDT Height 172.1 cm (5' 7.75) 03/26/2015 1 0:12 AM CDT Body Mass Index 28.32 03/26/2015 10:12 AM CDT Plan of Treatment Health Maintenance Due Date Last Done Comments Tdap 02/02/1983 Depression screening for age 12+ 1984 HIV for age 15-65 02/02/1987 BMI (ht and wt on same day) for age 18+ 02/02/1990 Hepatitis C screening for ag e 18-79 02/02/1990 Tetanus booster 1992 Pap test for age 21-65 02/02/1993 Colonoscopy through age 75 02/02/2017 Lipids for age 45-75 02/02/2017 Mammogram for age 45-75 02/02/2017 03/29/20 15, 02/17/2014, 01/31/2013, Additional history exists Pneumococcal series for age 50+ (1 of 1 - PCV) 02/02/2022 Zoster (shingles) series for age 50+ (1 of 2) 02/02/2022 COVID-19 vaccine series ( - 2023- season) 2024 Influenza Vaccine (Season Ended) 2025 03/19/20 09 Procedures Procedure Name Priority Date/Time Associated Diagnosis Comments XR MAMMO BILAT SCREEN FFDM (IA) Routine 03/29/2015 3:25 PM CDT Other screening mammogram from Last 3 Months or Most Recently Relevant to Health Maintenance Results * XR MAMMO BILAT SCREEN FFDM (03/29/2015 3:25 PM CDT) Anatomical Region Laterality Modality BREASTS, Breast Left, Breast Right Bilateral Mammography Impressions 03/30/2015 3:44 PM CDT There is no radiographic evidence for malignancy. Recommend annual mammograms. A lay language report of this examination will be provided to the patient. MAMMOGRAM ASSESSMENT: ACR 1 Negative Narrative 03/30/2015 3:44 PM CDT XR MAMMO BILAT SCREEN FFDM [G0202.0] CLINICAL HISTORY: This is an asymptomatic 45 y.o. patient. INDICATION FOR EXAM: Mammogram Screening. TECHNIQUE: CC & MLO views were obtained. This digital study was evaluated with the assistance of Computer-Aided Detection. COMPARISON FILM: Yes 02/17/[address] [facility] 01/31/13 [facility] FINDINGS: Mammographically, the breast tissue is extremely dense. This may lower the sensitivity of mammography. There are no dominant masses, suspicious micro calcifications or areas of architectural distortion. us Chaya BLOOM MAMMO Final Resu lt from Last 3 Months or Most Recently Relevant to Health Maintenance
--- OUTSIDE RECORDS SUMMARY | 2024-09-22 22:14 | XMS_ITS | Encounter Summary ---
Author Organization [facility] Address [address] [place] [address] Care Team Providers Care Guest Experience Manager Name Role Phone Unavailable Primary Care Provider Unavailabl e Encounter Details Date Type Department Care Team (Latest Contact Info) Description 03/21/2024 [facility]ake [facility] Social History Tobacco Use Types Packs/Day Years Used Date Smoking Tobacco: Never Smokeless Tobacco: Never [facility] Utilities Answer Date Recorded In the past 12 months has [place], gas, oil, or water [employer] threatened to shut off services in your home? No 04/02/2024 Humiliation, Afraid, Rape, and Kick questionnair e Answer Date Recorded Within the last year, have y ou been afraid of your partner or ex-partner? No 03/22/2024 Within the last year, have y ou been humiliated or emotionally abused in other ways by your partner or ex-partner? No Within the last year, have y ou been kicked, hit, slapped, or otherwise physically hurt by your partner or ex-partner? No 03/22/2024 Within the last year, have y ou been raped or forced to have any kind of sexual activity by your partner or ex-partner? No 03/22/2024 Exercise Vital Sign Answer Date Recorde d On average, how many days pe r week do you engage in moderate to strenuous exercise (like a brisk walk)? 0 days 04/02/2024 On average, how many minutes do you engage in exercise at this level? 0 min 04/02/2024 Hunger Vital Sign Answer Date Recorded Within the past 12 months, y ou worried that your food would run out before you got the money to buy more. Never true 04/02/20 Within the past 12 months, t he food you bought just didn't last and you didn't have money to get more. Never true 04/02/2024 PRAPARE - Transportation Answer Date Re corded In the past 12 months, has l ack of transportation kept you from medical appointments or from getting medications? No 03/12 In the past 12 months, has l ack of transportation kept you from meetings, work, or from getting things needed for daily living? No 04/02/2024 Nutrition Answer Date Recorded On average, how many serving s of fruits and vegetables do you eat per day (serving size is equal to 1 cup or approximately the size of a tennis ball)? 3-5 04/02/2024 Dental Answer Date Recorded Dental: Regular Dentist No 04/02/20 Employment Answer Date Recorded Employment status Employed and actively working without restrictions 04/02/2024 Housing Stability Answer Date Recorded What is your living situation today? I have a [facility] place to live 04/02/2024 Comments Unknown Sex and Gender Information Value Date Recorded Sex Assigned at Female 04/02/2024 3:10 PM CDT Legal Sex Female 5:47 PM CDT Gender Identity Female 04/02/2024 3:10 PM CDT Sexual Orientation Straight 04/02/2024 3: 10 PM CDT documented as of this encounter Plan of Treatment Not on file documented as of this encounter Visit Diagnoses Not on filedocumented in this encounter
--- OUTSIDE RECORDS SUMMARY | 2024-09-22 22:14 | XMS_ITS | Clinical Summary ---
Author Organization [facility] Address [address] [place] [address] Care Team Providers Care Application Development Consultant Name Role Phone Unavailable Primary Care Provider Unavailabl e Source Comments Patient records contain information from all sites at [facility]. For routine questions regarding patient records, call [phone] during business hours, M-F 8:00 AM - 5:00 PM Central Time. Record requests for emergency care only can be directed to [phone] at any time.[facility] Allergies No known active allergies Medications UNABLE TO FIND Take 1 each by mouth daily. Med Name: Cholesterol 360 dietary supplement capsules Active medroxyPROGESTE David (Provera) 10 mg tablet Take 2 tablets (20 mg total) by mouth 3 (three) times a day for 14 days. 84 tablet 04/02/2024 5:26 PM CDT 4 Active medroxyPROGESTE David (Provera) 10 mg tablet Take 2 tablets (20 mg total) by mouth 3 (three) times a day. 180 tablet 4 Active norethindrone (Aygestin) 5 mg tablet Take 2 tablets (10 mg total) by mouth daily. 180 tablet 2 04/17/2024 3:19 PM SIGNALING DESIGN ENGINEER 4 Active Active Problems Problem Noted Date Diagnosed Date Leiomyoma (Fibroid) Uterus 04/03/2024 Bleeding Dysfunctional Uterine 04/03/2024 Generalized Intra Abdominal And Pelvic Swelling Mass And Lump 03/21/2024 Bleeding Vaginal 03/21/2024 Anemia 03/21/2024 Family History Medical History Relation Name Comments Colon cancer Neg Hx Ovarian cancer Neg Hx Uterine cancer Neg Hx Social History Tobacco Use Types Packs/Day Years Used Date Smoking Tobacco: Never Smokeless Tobacco: Never Tobacco Cessation:Counseling Given: Not Answered [facility] Utilities Answer Date Recorded In the past 12 months has th e [employer], gas, oil, or water [employer] threatened to shut off services in your [...] money to buy more. Never true 04/02/20 24 Within the past 12 months, t he [...] your living situation today? I have a [facility] place to live 04/02/2024 Comments No Sex and Gender Information Value Date Recorded Sex Assigned at Female 04/02/2024 3:10 PM CDT Legal Sex Female 5:47 PM CDT Gender Identity Female 04/02/2024 3:10 PM CDT Sexual Orientation Straight 04/02/2024 3: 10 PM CDT Last Filed Vital Signs Vital Sign Reading Time Taken Comments Blood Pressure 146/75 06/13/2024 2:26 PM SIGNALING DESIGN ENGINEER Pulse 74 06/13/2024 2:26 PM SIGNALING DESIGN ENGINEER Temperature 36.9 C (98.4 F) 06/13/2024 1:39 PM SIGNALING DESIGN ENGINEER Respiratory Rate 16 06/13/2024 2:26 PM SIGNALING DESIGN ENGINEER Oxygen Saturation 97% 03/23/2024 12: 03 PM CDT Inhaled Oxygen Concentration - - Weight 87.5 kg (192 lb 14.4 oz) 03/21/2024 9:20 PM CDT Height 172.7 cm (5' 8) 03/21/2024 9:20 PM CDT Body Mass Index 29.33 03/21/2024 9:20 PM CDT Plan of Treatment Health Maintenance Due Date Last Done Comments CT Colonography 1972 Cologuard 1972 Colonoscopy 1972 Colorectal Cancer Screening 1972 FIT 1972 HIV Screening 1972 Hepatitis C Screening 1972 Lipid (Cholesterol) Screening 1972 Mammogram 1972 DTaP,Tdap,and Td Vaccines (1 - Tdap) 02/02/1991 Hepatitis B Vaccines (1 of 3 - 19+ 3-dose series) 02/02/1991 Pneumococcal vaccine (50+ years) (1 of 1 - PCV) 02/02/2022 Zoster Vaccines (1 of 2) 02/02/2022 COVID-19 Vaccine (3 - season) 2024 05/09/2021, 04/14/2021 Influenza Vaccine (#1) 2024 , 03/19/2009, 04/18/2003 Depression Screening (Annual PHQ-2) 06/11/2024 Fasting Glucose for Diabetes Screening 05/29/2027 05/29/2024, 03/21/2024 Cervical/Vaginal Cancer Screening 04/17/2029 04/17/2024, 04/17/2024, 03/21/2024, Additional history exists IPV Vaccines Aged Out No longer eligi ble based on patient's age to complete this topic Procedures Procedure Name Priority Date/Time Associated Diagnosis Comments BASIC METABOLIC PANEL, S/P Routine 05/29/2024 1:47 PM SIGNALING DESIGN ENGINEER Preoperative Exam HPV WITH GENOTYPING, PCR, THINPREP Routine 04/17/2024 1:56 PM SIGNALING DESIGN ENGINEER from Last 3 Months or Most Recently Relevant to Health Maintenance Results * (ABNORMAL) Basic Metabolic Panel (05/29/2024 1:47 PM SIGNALING DESIGN ENGINEER) Potassium, P 3.6 3.6 - 5.2 mmol/L 05/29/2024 2:20 PM SIGNALING DESIGN ENGINEER CNFL Sodium, P 139 135 - 145 mmol/L 05/29/2024 2:20 PM SIGNALING DESIGN ENGINEER CNFL Chloride, P 104 98 - 107 mmol/L 05/29/2024 2:20 PM SIGNALING DESIGN ENGINEER CNFL Bicarbonate, P 27 22 - 29 mmol/L 05/29/2024 2:20 PM SIGNALING DESIGN ENGINEER CNFL Anion Gap, P 8 7 - 15 05/29/2024 2:20 PM SIGNALING DESIGN ENGINEER CNFL BUN (Blood Urea Nitrogen), P 12 6 - 21 mg/dL 05/29/2024 2:20 PM SIGNALING DESIGN ENGINEER CNFL Creatinine 0.58(L) 0.59 - 1.04 mg/dL 05/29/2024 2:20 PM SIGNALING DESIGN ENGINEER CNFL Estimated GFR (eGFR) >90 >=60 mL/min/BSA 05/29/2024 2:20 PM SIGNALING DESIGN ENGINEER CNFL Comment: Estimated GFR calculated using the 2020 CKD_EPI creatinine equation. Calcium, Total, P 8.9 8.6 - 10.0 mg/dL 05/29/2024 2:20 PM SIGNALING DESIGN ENGINEER CNFL Glucose, P 104 70 - 140 mg/dL 05/29/2024 2:20 PM SIGNALING DESIGN ENGINEER CNFL Blood (Blood, Venous) 05/29/2024 1:47 PM SIGNALING DESIGN ENGINEER 05/29/2024 1:50 PM SIGNALING DESIGN ENGINEER Kalpana Woodson M.D. LAB BLOOD ADD-ON Final Result Performing Organization Address [facility] Co de Phone Number [facility] [address] [place] [phone], [facility] in [address] [address] * HPV with Genotyping, PCR, ThinPrep (04/17/2024 1:56 PM SIGNALING DESIGN ENGINEER) Specimen Source Cervix/Endoc ervix 04/21/2024 6:56 PM SIGNALING DESIGN ENGINEER SDSC HPV High Risk type 16, PCR Negative Negative 04/21/2024 6:56 PM SIGNALING DESIGN ENGINEER SDSC HPV High Risk type 18, PCR Negative Negative 04/21/2024 6:56 PM SIGNALING DESIGN ENGINEER SDSC HPV other High Risk types, PCR Negative Negative 04/21/2024 6:56 PM SIGNALING DESIGN ENGINEER SDSC Comment: The following Other High Risk HPV types were not detected: 31, 33, 35, 39, 45, 51, 52, 56, 58, 59, 66, and 68 This test was ordered in the context of a [facility] TOY PACKER Cytology case; this result should be interpreted within the context of the TOY PACKER cytology report. ----ADDITIONAL INFORMATION---- Testing was performed using the gagan HPV assay ([employer] This report is intended for use in clinical monitoring and management of patients. It is not intended for use in medical-legal applications. 04/17/2024 1:56 PM SIGNALING DESIGN ENGINEER 04/18/2024 8:25 AM SIGNALING DESIGN ENGINEER us Kalpana Woodson M.D. LAB MICROBIOLOGY - GENERAL ORD ERABLES Final Result Performing Organization Address City/[facility]/ZIP Co de Phone Number [facility] [place] [address] [place] [address] [facility] [address] ALEJ[place] [address] [place] [address] from Last 3 Months or Most Recently Relevant to Health Maintenance Advance Directives For more information, please contact: [phone] * Full Code (Latest Code Status on File) Date Activated Date Inactivated Comments 03/21/2024 10:15 PM 03/23/2024 3:30 PM Question Answer Comments Full Code: Not Discussed Due to: Not medically appropriate
[2024-09-22 22:23] VITALS: BP 131/88; PULSE 119; RESP 16; TEMP 36.6; O2SAT 98; BMI 29.6
--- NOTE | 2024-09-22 22:28 | ED.ABDPAIN ---
HPI - Abdominal Pain General Chief Complaint: Abdominal Pain Stated Complaint: Endometriosis--pain, bleeding Time Seen by Provider: 09/22/24 22:15 History of Present Illness HPI narrative: This 54-year-old female comes in reporting severe lower abdominal pain that began 2 days ago. She also has vaginal bleeding and states that she passed some larger clots earlier today. She has had symptoms like this in the past and saw the a clinician in the [facility] who recommended hysterectomy. She has not had this done because she could not afford that surgery. She does not report any lightheadedness but does feel short of breath at times. She does arrive here with tachycardia but otherwise has normal vital signs. Related Data Previous Rx's ?Medication ?Instructions ?Recorded hydrocodone 5 mg-acetaminophen 325 1 tab PO Q4-6H PRN pain #10 tabs 03/20/24 mg tablet Allergies Allergy/AdvReac Type Severity Reaction Status Date / Time No Known Drug Allergies Allergy Verified 03/21/24 15:14 Review of Systems Status of ROS Reports: 10 or more systems reviewed and unremarkable except as noted in History and below Narrative Constitutional: No fevers, no weight gain or loss. Eyes: No discharge. No vision changes. HENT: No congestion, no sore throat, no ear pain. Cardiovascular: No chest pain, no palpitations. Respiratory: No shortness of breath, no wheezes, no cough. Gastrointestinal: No vomiting, no diarrhea. Lower abdominal pain. Genitourinary: No dysuria, no hematuria. Musculoskeletal: Normal range of motion. Skin: No rashes, no pruritis. Neurological: No dizziness, weakness, sensory change, speech change. Endo/Heme/Allergies: No bruising. No polydipsia. Pysch: no suicidality, no anxiety, no insomnia. All other systems reviewed and are negative. [facility] Social History Smoking Status: Unknown if ever smoked Non-prescribed substance use: denies use Exam Const: Vital Signs, click to edit/add: Vital Signs - 24 hr 09/22/24 22:23 Temperature 97.8 F Pulse Rate [Pulse Oximeter] 119 H Respiratory Rate 16 Blood Pressure [Ri ght Upper Arm] 131/88 Pulse Oximetry 98 Oxygen Delivery Me thod Room Air Course Vital Signs Vital signs: Initial Vital Signs Temperature 97.8 F 09/22/24 22:23 Temperature Source Temporal Artery Scan 09/22/24 22:23 Pulse Rate 119 H 09/22/24 22:23 Respiratory Rate 16 09/22/24 22:23 Blood Pressure 131/88 09/22/24 22:23 Blood Pressure Mean 102 09/22/24 22:23 Blood Pressure Position Sitting 09/22/24 22:23 Pulse Oximetry 98 09/22/24 22:23 Oxygen Delivery Method Room Air 09/22/24 22:23 Vital Signs Temperature 97.8 F 09/22/24 22:23 Pulse Rate 119 H 09/22/24 22:23 Respiratory Rate 16 09/22/24 22:23 Blood Pressure 131/88 09/22/24 22:23 Pulse Oximetry 98 09/22/24 22:23 Oxygen Delivery Method Room Air 09/22/24 22:23 Temperature 97.8 F 09/22/24 22:23 Pulse Rate 119 H 09/22/24 22:23 Respiratory Rate 16 09/22/24 22:23 Blood Pressure 131/88 09/22/24 22:23 Pulse Oximetry 98 09/22/24 22:23 Oxygen Delivery Method Room Air 09/22/24 22:23 Medications Administered Medications: Discontinued Medications Generic Name Dose Route Start Last Admin Trade Name Freq PRN Reason Stop Dose Admin Hydromorphone HCl 0.5 mg 09/22/24 22:27 09/22/24 22:46 Hydromorphone 0.5 Mg/0.5 Ml Inj IVP 09/22/24 22:28 0.5 mg ONCE ONE Administration Sodium Chloride 1,000 mls @ 1,000 mls/hr 09/22/24 22:30 09/22/24 22:47 0.9 % Sodium Chloride 1000 Ml IV 09/22/24 23:29 1,000 mls/hr .Q1H EMILY Administration MDM - Abdominal Pain MDM Narrative Medical decision making narrative: This patient comes in with severe lower abdominal pain and reports vaginal bleeding over the past couple days. This is a recurrent problem for her and she has been recommended to have an hysterectomy but she states that she can not afford this currently. Her significant other arrived and stated that she had a injection of estrogen he says that brought good relief to her symptoms but this is now worn off. I advised her to [facility]. She received IV fluids and Dilaudid 0.5 mg. She is feeling much better. Labs returned with reassuring findings. Her hemoglobin is around 10 so there is some question if she has some ongoing bleeding. I did send home an [employer] prescription for some tablets of [place]. Lab Data Labs: Lab Results 09/22/24 Range/Units 22:45 WBC 6.50 (4.50-11.00) K/uL RBC 3.70 L (4.00-5.20) m/uL Hgb 10.2 L (12.0-16.0) gm/dL Hct 31.2 L (33.0-51.0) % MCV 84 (80-100) fL MCH 28 (26-34) pg MCHC 33 (32-36) gm/dL RDW Coeff of Mando 15.0 (11.5-15.5) % Plt Count 207 (140-440) K/uL Neut % (Auto) 75.8 H (42.0-72.0) % Lymph % (Auto) 10.8 L (20-44) % Morrow % (Auto) 11.1 H (0.0-11.0) % Eos % (Auto) 0.8 (0.0-7.0) % Baso % (Auto) 0.3 (0.0-3.0) % Neut # (Auto) 4.90 (1.7-7.0) K/uL Lymph # (Auto) 0.70 L (0.90-2.90) K/uL Morrow # (Auto) 0.70 (0.00-0.90) K/UL Eos # (Auto) 0.05 (0.00-0.50) K/uL Baso # (Auto) 0.02 (0.00-0.30) K/uL Abs Immat Gran (auto) 0.08 (0.00-0.30) K/uL Imm/Tot Granulo (auto) 1.2 % Discharge Plan Discharge Clinical Impression: Abdominal pain Patient Disposition: Home, Self-Care Condition: Improved Additional Instructions: Take medication as needed and directed. [facility]. Return if worsening. Prescriptions: No Action hydrocodone-acetaminophen 5-325 mg tablet 1 tab PO Q4-6H PRN (Reason: pain) Qty: 10 0RF Follow Up/Referrals: Provider,Not a Local [Primary Care Provider] - Stand Alone Forms: SiteBrandth Info Instructions
[2024-09-22] MEDS: HYDROmorphone 0.5 mg/0.5 ml inj IVP (22:46)
[2024-09-22] MEDS: 0.9 % SODIUM CHLORIDE 1000 ml 1,000 ML IV (22:47)
[2024-09-22 23:02] VITALS: BP 137/84; PULSE 100; RESP 18; O2SAT 97
--- OUTSIDE RECORDS SUMMARY | 2024-09-22 23:02 | XMS_ITS | Clinical Summary ---
Author Organization [employer] [facility] [facility] Address [address] [place] [address] Care Team Providers Care Building Economist Name Role Phone Unavailable Primary Care Provider [...] on file Legal Sex Female 5:19 AM FITNESS CONSULTANT Gender Identity Not on file Sexual Orientation [...] of Computer-Aided Detection. COMPARISON FILM: Yes 02/17/14 [facility] 01/31/13 [facility] FINDINGS: Mammographically, the breast tissue is extremely dense. This may lower the sensitivity of mammography. There are no dominant masses, suspicious micro calcifications or areas of architectural distortion. us Chaya BLOOM MAMMO Final Resu lt from Last 3 Months or Most Recently Relevant to Health Maintenance
--- OUTSIDE RECORDS SUMMARY | 2024-09-22 23:02 | XMS_ITS | Encounter Summary ---
Author Organization [facility] Address [address] [place] [address] Care Team Providers Care Retirement Assistant Name Role Phone Unavailable Primary Care Provider Unavailabl e Encounter Details Date Type Department Care Team (Latest Contact Info) Description 03/21/2024 Intake [facility] Social History Tobacco Use Types Packs/Day Years Used Date Smoking Tobacco: Never Smokeless Tobacco: Never [facility] Utilities Answer Date Recorded In the past 12 months has [employer], gas, oil, or water [employer] threatened to shut off services in your [...] your living situation today? I have a [facility] place to live 04/02/2024 Comments Unknown [...]
--- OUTSIDE RECORDS SUMMARY | 2024-09-22 23:02 | XMS_ITS | Clinical Summary ---
Author Organization [facility] Address [address] [place] [address] Care Team Providers Care Brusher And Shearer Name Role Phone Unavailable Primary Care Provider Unavailabl e Source Comments Patient records contain information from all sites at [facility]. For routine questions regarding patient records, call [phone] during business hours, M-F 8:00 AM - 5:00 PM Central Time. Record requests for emergency care only can be directed to [phone] at any time.[facility] Allergies No known active allergies Medications [...] daily. 180 tablet 2 04/17/2024 3:19 PM WOOD FORM BUILDER 4 Active Active Problems Problem Noted Date [...] Tobacco: Never Tobacco Cessation:Counseling Given: Not Answered [facility] Utilities Answer Date Recorded In the past 12 months has th e [employer], gas, oil, or water [employer] threatened to shut off services in your [...] living situation today? I have a [facility] place to live 04/02/2024 Comments No Sex and Gender Information Value Date Recorded Sex Assigned at Female 04/02/2024 3:10 PM CDT Legal Sex Female 5:47 PM CDT Gender Identity Female 04/02/2024 3:10 PM CDT Sexual Orientation Straight 04/02/2024 3: 10 PM CDT Last Filed Vital Signs Vital Sign Reading Time Taken Comments Blood Pressure 146/75 06/13/2024 2:26 PM WOOD FORM BUILDER Pulse 74 06/13/2024 2:26 PM WOOD FORM BUILDER Temperature 36.9 C (98.4 F) 06/13/2024 1:39 PM WOOD FORM BUILDER Respiratory Rate 16 06/13/2024 2:26 PM WOOD FORM BUILDER Oxygen Saturation 97% 03/23/2024 12: 03 PM [...] METABOLIC PANEL, S/P Routine 05/29/2024 1:47 PM WOOD FORM BUILDER Preoperative Exam HPV WITH GENOTYPING, PCR, THINPREP Routine 04/17/2024 1:56 PM WOOD FORM BUILDER from Last 3 Months or Most Recently Relevant to Health Maintenance Results * (ABNORMAL) Basic Metabolic Panel (05/29/2024 1:47 PM WOOD FORM BUILDER) Potassium, P 3.6 3.6 - 5.2 mmol/L 05/29/2024 2:20 PM WOOD FORM BUILDER CNFL Sodium, P 139 135 - 145 mmol/L 05/29/2024 2:20 PM WOOD FORM BUILDER CNFL Chloride, P 104 98 - 107 mmol/L 05/29/2024 2:20 PM WOOD FORM BUILDER CNFL Bicarbonate, P 27 22 - 29 mmol/L 05/29/2024 2:20 PM WOOD FORM BUILDER CNFL Anion Gap, P 8 7 - 15 05/29/2024 2:20 PM WOOD FORM BUILDER CNFL BUN (Blood Urea Nitrogen), P 12 6 - 21 mg/dL 05/29/2024 2:20 PM WOOD FORM BUILDER CNFL Creatinine 0.58(L) 0.59 - 1.04 mg/dL 05/29/2024 2:20 PM WOOD FORM BUILDER CNFL Estimated GFR (eGFR) >90 >=60 mL/min/BSA 05/29/2024 2:20 PM WOOD FORM BUILDER CNFL Comment: Estimated GFR calculated using the 2020 CKD_EPI creatinine equation. Calcium, Total, P 8.9 8.6 - 10.0 mg/dL 05/29/2024 2:20 PM WOOD FORM BUILDER CNFL Glucose, P 104 70 - 140 mg/dL 05/29/2024 2:20 PM WOOD FORM BUILDER CNFL Blood (Blood, Venous) 05/29/2024 1:47 PM WOOD FORM BUILDER 05/29/2024 1:50 PM WOOD FORM BUILDER Kalpana Woodson M.D. LAB BLOOD ADD-ON Final Result Performing Organization Address [facility] Co de Phone Number [facility] [address] [place] [id number], [facility] in [address] [address] * HPV with Genotyping, PCR, ThinPrep (04/17/2024 1:56 PM WOOD FORM BUILDER) Specimen Source Cervix/Endoc ervix 04/21/2024 6:56 PM WOOD FORM BUILDER SDSC HPV High Risk type 16, PCR Negative Negative 04/21/2024 6:56 PM WOOD FORM BUILDER SDSC HPV High Risk type 18, PCR Negative Negative 04/21/2024 6:56 PM WOOD FORM BUILDER SDSC HPV other High Risk types, PCR Negative Negative 04/21/2024 6:56 PM WOOD FORM BUILDER SDSC Comment: The following Other High Risk HPV types were not detected: 31, 33, 35, 39, 45, 51, 52, 56, 58, 59, 66, and 68 This test was ordered in the context of a [facility] SHREDDER TENDER Cytology case; this result should be interpreted within the context of the SHREDDER TENDER cytology report. ----ADDITIONAL INFORMATION---- Testing was performed using the gagan HPV assay ([employer] This report is intended for use in clinical monitoring and management of patients. It is not intended for use in medical-legal applications. 04/17/2024 1:56 PM WOOD FORM BUILDER 04/18/2024 8:25 AM WOOD FORM BUILDER us Kalpana Woodson M.D. LAB MICROBIOLOGY - GENERAL ORD ERABLES Final Result Performing Organization Address City/[facility]/ZIP Co de Phone Number [facility] [place] [address] [place] [address] [facility] [address] [place] [address] [place] [address] from Last 3 Months or Most Recently Relevant to Health Maintenance Advance Directives For more information, please contact: [phone] * Full Code (Latest Code Status on File) Date Activated Date Inactivated Comments 03/21/2024 10:15 PM 03/23/2024 3:30 PM Question Answer Comments Full Code: Not Discussed Due to: Not medically appropriate
[2024-09-22 23:06] LABS: Basophils Absolute Auto 0.02 K/uL (0.00-0.30); Basophils Percent Auto 0.3 % (0.0-3.0); Eosinophils Absolute Auto 0.05 K/uL (0.00-0.50); Eosinophils Percent Auto 0.8 % (0.0-7.0); Hematocrit 31.2 % (33.0-51.0); Hemoglobin* 10.2 gm/dL (12.0-16.0); Immature Granulocytes Abs Auto 0.08 K/uL (0.00-0.30); Immature Granulocytes Pct Auto 1.2 %; Lymphocytes Percent Auto 10.8 % (20-44); Mean Corpuscular HGB Conc 33 gm/dL (32-36); Mean Corpuscular Hemoglobin 28 pg (26-34); Mean Corpuscular Volume 84 fL (80-100); Monocytes Percent Auto 11.1 % (0.0-11.0); Neutrophils Percent Auto 75.8 % (42.0-72.0); Platelet Count* 207 K/uL (140-440)
[2024-09-22 23:11] LABS: Slide Review Reflex No
[2024-09-22 23:19] LABS: Chloride* 105 mmol/L (96-114); Potassium* 3.5 mmol/L (3.6-5.1); Sodium* 135 mmol/L (135-149)
[2024-09-22 23:22] LABS: Anion Gap 8 mEq/L (7-15); Blood Urea Nitrogen* 18 mg/dL (7-30); Calcium* 8.8 mg/dL (8.4-10.6); Carbon Dioxide* 22 mmol/L (20-32); Creatinine* 0.6 mg/dL (0.5-1.5); Est. Creatinine Clearance* 110.64; Estimated Glomerular Filt Rate 108 ml/min; Glucose* 124 mg/dL (60-115)
[2024-09-22 23:31] VITALS: BP 144/82; PULSE 101; O2SAT 96
== END 2024-09-23 00:12 | disposition home or self-care (01) ==
PROVIDERS: Emergency Provider Emergency Medicine Emergency Medical Services
DX: R10.9 Unspecified abdominal pain (principal)
CPT/HCPCS: 36415; 80048; 85025; 96361; 96374; 99284; J1171; J7030